=== PATIENT | male | born 1955 | race Caucasian/White ===

== ENCOUNTER 2020-09-16 10:29 | Day surgery (SDC) | payer MEDICARE ==
[~2020-09-16] VITALS: Ht 193 cm; Wt 114.0 kg
[2020-09-16 11:20] VITALS: BP 111/74
[2020-09-16] MEDS ORDERED: CHLORHEXIDINE 15 ML UDC MM STA (11:24)
[2020-09-16] MEDS ORDERED: SIMV40TA20 PO (11:30)
[2020-09-16] MEDS ORDERED: METO-99 PO (11:30)
[2020-09-16] MEDS ORDERED: LACTATED RINGERS 1,000 ML IV SCH (11:30)
[2020-09-16] MEDS ORDERED: HYDR-1067 PO (11:30)
[2020-09-16] MEDS ORDERED: FAMO20TA7 PO (12:16)
[2020-09-16 12:43] LABS: ANION GAP 5 mmol/L (5-15); CHLORIDE 108 mmol/L (98-107)
[2020-09-16 12:47] LABS: ALANINE AMINOTRANSFERASE 29 U/L (12-78); ALKALINE PHOSPHATASE 68 U/L (45-117); BILIRUBIN,TOTAL 0.8 mg/dL (0.2-1.0); CREATININE 0.89 mg/dL (0.7-1.3); TOTAL PROTEIN 6.7 g/dL (6.4-8.2)
[2020-09-16] MEDS ORDERED: ROCURONIUM 10 MG/ML,10ML ONE (13:25)
[2020-09-16] MEDS ORDERED: PROPOFOL 10 MG/ML, 20ML ONE (13:25)
[2020-09-16] MEDS ORDERED: ONDANSETRON 2MG/ML, 2ML ONE (13:25)
[2020-09-16] MEDS ORDERED: DEXAMETHASONE 4 MG/ML, 1ML ONE (13:25)
[2020-09-16] MEDS ORDERED: CEFAZOLIN 1,000 MG ONE (13:25)
[2020-09-16] MEDS ORDERED: FENTANYL PF 100 MCG/2ML ONE (13:27)
[2020-09-16] MEDS ORDERED: hydrALAzine 20 MG/ML, 1ML IV PRN (14:30)
[2020-09-16] MEDS ORDERED: HYDROmorphone 2 MG/ML, 1ML IVPush PRN (14:30)
[2020-09-16] MEDS ORDERED: MEPERIDINE/PF 25MG/0.5ML IVPush PRN (14:30)
[2020-09-16] MEDS ORDERED: OXYcodone 5 MG/5 ML ORAL.SOL UDC PO PRN (14:30)
[2020-09-16] MEDS ORDERED: KETOROLAC 30 MG/1 ML IV PRN (14:30)
[2020-09-16] MEDS ORDERED: LABETALOL 5MG/ML, 20ML IV PRN (14:30)
[2020-09-16] MEDS ORDERED: FENTANYL PF 100 MCG/2ML IV PRN (14:30)
[2020-09-16] MEDS ORDERED: PROMETHAZINE 25 MG/ML, 1ML IV PRN (14:30)
[2020-09-16] MEDS ORDERED: DIAZEPAM 5 MG/ML, 2ML IVPush PRN (14:30)
[2020-09-16] MEDS ORDERED: ACETAMINOPHEN 325 MG TABLET PO PRN (14:30)
[2020-09-16] MEDS ORDERED: ALBUTEROL SULFATE 2.5 MG/3 ML NPPB PRN (14:30)
[2020-09-16] MEDS ORDERED: KETOROLAC 30 MG/1 ML ONE (15:27)
== END 2020-09-16 17:05 | disposition home or self-care (01) ==
LOC: OUT 10:29
PROVIDERS: ATTEND Orthopaedic Surgery
DX: S52.571A Other intraarticular fracture of lower end of right radius, initial encounter for closed fracture (principal); I10 Essential (primary) hypertension; E78.5 Hyperlipidemia, unspecified; M19.90 Unspecified osteoarthritis, unspecified site; K21.9 Gastro-esophageal reflux disease without esophagitis; X58.XXXA Exposure to other specified factors, initial encounter; Y93.89 Activity, other specified; Y92.89 Other specified places as the place of occurrence of the external cause; Y99.8 Other external cause status; Z79.899 Other long term (current) drug therapy; Z72.89 Other problems related to lifestyle; Z96.651 Presence of right artificial knee joint; Z98.890 Other specified postprocedural states; Z20.822 Contact with and (suspected) exposure to COVID-19
CPT/HCPCS: 25609; 36415; 73100; 80053; 87635; 93005; C1713; C1762; J0690; J1100; J1885; J2405; J2704; J3010; J7120; 76000